=== PATIENT | female | born 1995 | race Caucasian/White ===

== ENCOUNTER 2016-11-24 18:35 | Emergency (ER) | payer SELFPAY | END 2016-11-24 22:18 | disposition left against medical advice (07) | LOC: E/R 18:35 | DX: Z53.21 Procedure and treatment not carried out due to patient leaving prior to being seen by health care provider (principal) ==

== ENCOUNTER 2017-08-24 22:04 | Emergency (ER) | payer OTHER ==
[~2017-08-24] VITALS: Ht 167.6 cm; Wt 70.9 kg
[2017-08-24 22:11] VITALS: Ht 167.6 cm; Wt 70.9 kg
[2017-08-24] MEDS ORDERED: IBUP-1542 PO (23:14)
[2017-08-24] MEDS ORDERED: IBUPROFEN 800 MG TAB PO ONE (23:30)
--- NOTE | 2017-08-24 23:37 | ERD ---
ER Documentation Chief Complaint Chief Complaint fell almost an hour ago on her face; pt did not pass out HPI Patient is a 22-year-old female with no medical problems who presents with a fall. She was moving trash cans on the street and slipped and landed on the left side of her face. She says that her face feels "swollen and tight". She did not lose consciousness. She has had no vomiting. This happened at 10 PM. She has had no treatment as of yet. Upon review of old medical records this is the patient's sixth visit to the ER since 2007. ROS All systems reviewed and are negative except as per history of present illness. Medications Home Meds Active Scripts Ibuprofen* (Motrin*) 600 Mg Tab, 600 MG PO Q6, #30 TAB Prov:WILFRIDO DAVIES MD 08/24/17 Allergies Allergies: Coded Allergies: No Known Allergy (Unverified , 08/24/17) PMhx/Soc Medical and Surgical Hx: pt denies Medical Hx, pt denies Surgical Hx History of Surgery: No Hx Neurological Disorder: No Hx Respiratory Disorders: No Hx Cardiac Disorders: No Hx Miscellaneous Medical Probl: No Hx Alcohol Use: No Hx Substance Use: No Hx Tobacco Use: No FmHx Family History: No diabetes Physical Exam Vitals Vital Signs Date Time Temp Pulse Resp B/P Pulse Ox O2 Delivery O2 Flow Rate FiO2 08/24/17 22:11 97.6 90 20 112/65 97 Physical Exam Const: No acute distress Head: Patient has mild facial swelling to the left cheekbone without deformity Eyes: Normal Conjunctiva ENT: Normal External Ears, Nose and Mouth. Neck: Full range of motion..~ No meningismus. Resp: Clear to auscultation bilaterally Cardio: Regular rate and rhythm, no murmurs Abd: Soft, non tender, non distended. Normal bowel sounds Skin: No petechiae or rashes Back: No midline or flank tenderness Ext: No cyanosis, or edema Neur: Awake and alert Psych: Normal Mood and Affect Results 24 hrs Current Medications Medications (Trade) Dose Ordered Sig/Kya Route PRN Reason Start Time Stop Time Status Last Admin Dose Admin Ibuprofen (Motrin) 800 mg ONCE ONCE PO 08/24/17 23:30 08/24/17 23:31 DC Procedures/MDM Patient is a 22-year-old female who presents with a fall. She has swelling to the left face and left lip. I doubt fracture or intracranial hemorrhage. I believe the risk of doing a CT scan outweigh the benefits at this time. The patient was given ibuprofen for pain and inflammation reduction. She was given an ice pack as well. She will be discharged home with prescription for ibuprofen. She can return for any worsening symptoms. Departure Diagnosis: Primary Impression: Facial contusion Encounter type: initial encounter Qualified Code: S00.83XA - Contusion of face, initial encounter Additional Impression: Fall Encounter type: initial encounter Qualified Code: W19.XXXA - Fall, initial encounter Condition: Fair Patient Instructions: Facial Contusion, No Wakeup, Fall, Mechanical Referrals: Your doctor Additional Instructions: Call your primary care doctor TOMORROW for an appointment during the next 1-2 days.See the doctor sooner or return here if your condition worsens before your appointment time. WILFRIDO DAVIES MD Aug 24, 2017 23:37
== END 2017-08-25 00:45 | disposition home or self-care (01) ==
LOC: FTE 22:04
DX: S00.83XA Contusion of other part of head, initial encounter (principal); W01.0XXA Fall on same level from slipping, tripping and stumbling without subsequent striking against object, initial encounter; Y92.9 Unspecified place or not applicable
CPT/HCPCS: Z7502; Z7610; 99283